=== PATIENT | male | born 1970 | race Caucasian/White ===

== ENCOUNTER 2021-04-11 12:20 | Emergency (ER) | payer BC, OTHER, SELFPAY ==
[2021-04-11 12:29] VITALS: BP 151/102; PULSE 63; RESP 16; TEMP 36.6; O2SAT 95; BMI 34.3
--- NOTE | 2021-04-11 12:41 | ED_ITS ---
HPI - Extremity Injury (Upper) General: Chief Complaint: Extremity Injury, Upper Stated Complaint: R finger injury Time Seen by Provider: 04/11/21 12:35 Source: patient Mode of arrival: ambulatory Limitations: no limitations History of Present Illness: HPI narrative: Patient is a 50-year-old male who presents to ED today for evaluation of a right index finger injury. Patient t ells me approximately 3 to 4 days ago he got the finger smashed in the hinge of a chair. 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 Patient states his tetanus is up-to-date. He is here today stating the finger continues to throb. complaint: injury to: right and finger Onset (ago): day(s) Other Extremity Injury: Right: fingers Other injuries: none Place: outdoors Severity: moderate Relieving factors: none Exacerbating factors: none Context: direct blow Associated symptoms: Reports no associated symptoms Review of Systems Musc: Reports: extremity pain (R index finger pain); Denies: limited range of motion Neuro: Denies: numbness in extremities or sensory changes Physical Exam Const: COMMON NORMALS: no acute distress, patient oriented x3, no limitations and alert Extremity: GENERAL: Yes normal exam except as noted OTHER: pt has mild swelling to distal phalanx of R index finger; there is a subungual hematoma affecting about 40% of his nail-there are several puncture pinto through nail where patient used a small drill bit to drain; no felon present; palmar pad is soft; he has some mild erythema surrounding cuticle/nail fold Neuro: COMMON NORMALS: patient oriented x3, moves all extremities, no focal motor deficits and no sensory deficits noted SENSORIUM/ORIENTATION: Yes alert Skin: NARRATIVE SKIN EXAM: see extremity assessment for pertinent skin findings Course Vital Signs: Vital signs: Vital Signs Temperature 98 F 04/11/21 12:29 Pulse Rate 63 04/11/21 12:29 Respiratory Rate 16 04/11/21 12:29 Blood Pressure 151/102 04/11/21 12:29 Pulse Oximetry 95 04/11/21 12:29 MDM - Extremity Injury (Upper) MDM Narrative: Medical decision making narrative: Patient states he is from so cannot followup with ortho here. Agrees to follow up with PCP when he gets home and obtain referral from them if needed. Will treat with pain meds as he states this is his main complaint. Will write for abx given the mild amount of redness however stated he could watch this over the next 24-48 hours and fill abx if redness worsened. Imaging Data^: XR R finger: My impression: very small avulsion fx noted to distal phalanx; seen best on lateral film Radiologist's impression: [address], [place] [address]AKyn ReportSigned Patient: Shilpi Garcia #: [id number]: [id number]#:[id number]/Sex: 50 / MADM Date: 04/11/21Loc: ERRoom/Bed:Attending Dr: Ordering Provider/Ordering MD: Jazmín Gillette Date of Service: 04/11/21 Procedure(s): XR finger RT min 2V 52858 Accession Number(s): [id number] Report Number: [id number] PROCEDURE INFORMATION: Exam: XR Right Finger(s) Exam date and time: 04/11/2021 12:40 PM Age: 50 years old Clinical indication: Pain; Finger(s); Right; Additional info: Trauma; Index TECHNIQUE: Imaging protocol: XR Right fingers. Views: Minimum 2 views. COMPARISON: No relevant prior studies available. FINDINGS: Bones/joints: There is a hairline nondisplaced fracture through the radial aspect of the base of the 2nd digit distal phalanx. Soft tissues: There is a punctate ossified density in the soft tissues posterior to the base of the 2nd digit distal phalanx. There is edema in the soft tissues surrounding the distal 2nd digit. XR/XR finger RT min 2V 67140 IMPRESSION: 1. There is a hairline nondisplaced fracture through the radial aspect of the base of the 2nd digit distal phalanx. 2. A punctate ossified density in the soft tissues posterior to the base of the 2nd digit distal phalanx may represent benign soft tissue calcification. Small avulsion fracture fragment cannot be excluded. Dictated By:Thalia Lay MDSigned By:Thalia Lay MDSigned Date/Time:04/11/21 1432DD/ 1431 Discharge Plan Discharge Patient Disposition: Home Clinical Impression: Fracture of distal phalanx of finger of right hand Subungual hematoma of digit of hand Qualifiers: Encounter type: initial encounter Qualified Code(s): S60.10XA - Contusion of unspecified finger with damage to nail, initial encounter Condition: Stable Prescriptions: New tramadol 50 mg tablet 50 mg PO Q6H PRN (Reason: pain) Qty: 14 RF: 0 cephalexin 500 mg capsule 500 mg PO Q6H 7 Days Qty: 28 RF: 0 diclofenac sodium 50 mg tablet,delayed release (DR/EC) 50 mg PO Q12H PRN (Reason: pain) Qty: 20 RF: 0 No Action celecoxib 200 mg capsule 200 mg PO DAILY RF: 0 amlodipine 2.5 mg tablet 2.5 mg PO DAILY RF: 0 escitalopram oxalate 20 mg tablet 20 mg PO DAILY RF: 0 Keppra 1,000 mg tablet 1,000 mg PO BID RF: 0 lamotrigine 50 mg tablet extended release 24hr 50 mg PO DAILY RF: 0 lamotrigine 200 mg tablet extended release 24hr 400 mg PO DAILY RF: 0 Breo Ellipta 200-25 mcg/dose blister with device See Rx Instructions .ROUTE .COMPLEX RF: 0 Discharge Orders: Discharge ED (Routine); Ordered 04/11/21 Ordered By: Jazmín Gillette Patient Instructions: Fractures - Phalanx (Finger), Finger Fracture (ED) Activity Restrictions/Additional Instructions: As we discussed I would soak the finger in warm soapy water several times daily. You may continue to monitor for infection over the next 24 to 48 hours. If redness worsens or spreads you may fill the antibiotics for Keflex. Do not take the diclofenac with other OTC anti-inflammatories such as Ibuprofen/Motrin or Naproxen. You need to follow-up with primary care when you return home to [place]. They may have you follow-up with orthopedics/hand surgery for evaluation of your distal phalanx fracture. Coding Level of Care Code ED General Studies Program Chair for Estefania Kennedy Exam Expanded Problem Focused
[2021-04-11] MEDS: ketorolac 60 mg/2 mL INJ IM (14:38)
[2021-04-11 15:18] VITALS: RESP 16; TEMP 36.6; O2SAT 95
== END 2021-04-11 15:20 | disposition home or self-care (01) ==
PROVIDERS: Emergency Provider Physician Assistant
DX: S62.660A Nondisplaced fracture of distal phalanx of right index finger, initial encounter for closed fracture (principal); S60.121A Contusion of right index finger with damage to nail, initial encounter; W23.0XXA Caught, crushed, jammed, or pinched between moving objects, initial encounter
CPT/HCPCS: 73140; 96372; 99283; J1885